=== PATIENT | female | born 1965 | race Caucasian/White ===

== ENCOUNTER 2018-10-14 16:37 | Emergency (ER) | payer SELFPAY ==
[2018-10-14 17:47] LABS: Bilirubin Negative (Negative); Blood, Urine Trace (Negative); Clarity Clear (Clear); Glucose, Urine (Dipstick) Negative (Negative); Leukocyte Negative (Negative); Nitrite Negative (Negative); Protein, Urine (Dipstick) Negative (Neg-Trace); Urobilinogen 0.2 mg/dL (0.2-1.0); pH, Urine 5.5 (5.0-9.0)
[2018-10-14 17:50] LABS: Bacteria/HPF None Seen HPF (None Seen); Crystals/HPF None Seen HPF (Negative); Hyaline Casts/LPF NONE SEEN LPF (0-3 Hyaline); Other Casts/LPF None Seen LPF (0-3 Hyaline); Oval Fat Bodies/HPF None Seen HPF (None Seen); RBC/HPF 0-3 HPF (0-3); Renal Epithelial None Seen HPF (0-3); Sperm/HPF None Seen HPF (None Seen); Squamous Epithelial 0-3 HPF (0-3); Transitional Epithelial NONE SEEN HPF (0-3); Trichomonas/HPF None Seen HPF (None Seen); WBC/HPF None Seen HPF (0-3); Yeast-All Forms None Seen HPF (None Seen)
== END 2018-10-14 18:15 | disposition home or self-care (01) ==
LOC: BURERS 16:37
DX: S33.5XXA Sprain of ligaments of lumbar spine, initial encounter (principal); I10 Essential (primary) hypertension; Z79.899 Other long term (current) drug therapy; X50.9XXA Other and unspecified overexertion or strenuous movements or postures, initial encounter
CPT/HCPCS: 81003; 81015; 99283

== ENCOUNTER 2021-10-20 19:10 | Emergency (ER) | payer OTHER, SELFPAY ==
[2021-10-20] MEDS ORDERED: cefTRIAXone\\ROCEPHIN 1 GM VIAL ONE (19:30)
[2021-10-20] MEDS ORDERED: AMOXicillin 250 MG CAP ONE (19:44)
== END 2021-10-20 19:45 | disposition home or self-care (01) ==
LOC: BURERS 19:10
DX: K02.9 Dental caries, unspecified (principal); I10 Essential (primary) hypertension; Z79.899 Other long term (current) drug therapy
CPT/HCPCS: 99282; J0696

== ENCOUNTER 2024-04-05 11:01 | Emergency (ER) | payer MEDICAID, SELFPAY ==
[2024-04-05] MEDS ORDERED: Sulfameth/Trimethoprim DS 800-160mg TAB ONE (11:33)
[2024-04-05] MEDS ORDERED: Cephalexin 250 MG CAP ONE (11:33)
[2024-04-05] MEDS ORDERED: predniSONE 20 MG TAB ONE (11:34)
== END 2024-04-05 11:51 | disposition home or self-care (01) ==
LOC: BURERS 11:01
DX: S39.011A Strain of muscle, fascia and tendon of abdomen, initial encounter (principal); L03.314 Cellulitis of groin; I10 Essential (primary) hypertension; X58.XXXA Exposure to other specified factors, initial encounter
CPT/HCPCS: 99283; J7512

== ENCOUNTER 2025-02-16 21:01 | Emergency (ER) | payer SELFPAY ==
[2025-02-16 22:36] LABS: Hematocrit 41.6 % (36.0-47.0); Hemoglobin 15.3 g/dL (12.0-16.0); MDiff Complete? YES; Mean Corpuscular Hemoglobin 27.6 pg (27.0-31.0); Mean Corpuscular Volume 75.0 fl (78.0-98.0); Microcytosis SLIGHT = 6-15 cells (100X) (0-5/hpf); Platelet Adequacy Comment Appears Adequate; Platelet Count 238 10x3/uL (130-400); Red Blood Cell (RBC) Count 5.54 mill/uL (4.20-5.40); White Blood Cell (WBC) Count 10.6 10x3/uL (4.8-10.8)
[2025-02-16 22:42] LABS: ALT (SGPT) 12 U/L (Less than 34); AST (SGOT) 16 U/L (11-34); Albumin 3.9 g/dL (3.1-4.5); Alkaline Phosphatase 79 U/L (40-110); Anion Gap 16 mmol/L (10-20); BUN (Urea Nitrogen) 14 mg/dL (9.8-20.1); Bilirubin, Total 1.0 mg/dL (0.3-1.2); Calc. Creatinine Clearance 0 mL/min (70-130); Calcium 9.2 mg/dL (7.8-10.44); Carbon Dioxide 23 mmol/L (22-29); Chloride 106 mmol/L (98-107); Globulin 3.7 g/dL (2.4-3.5); Glucose 133 mg/dL (70-105); Potassium 4.5 mmol/L (3.5-5.1); Sodium 140 mmol/L (136-145)
[2025-02-16 22:45] LABS: Troponin I Less than 0.010 ng/mL (< 0.028)
[2025-02-16] MEDS ORDERED: predniSONE 20 MG TAB ONE (23:41)
== END 2025-02-17 00:18 | disposition home or self-care (01) ==
LOC: BURERS 21:01
DX: J22 Unspecified acute lower respiratory infection (principal); I10 Essential (primary) hypertension; Z79.899 Other long term (current) drug therapy
CPT/HCPCS: 36415; 71045; 80053; 83880; 84484; 85025; 93005; J7512